=== PATIENT | female | born 1950 | race Caucasian/White ===

== ENCOUNTER 2018-03-08 15:00 | Inpatient (IN) | payer MEDICARE ==
[~2018-03-08] VITALS: Ht 160 cm; Wt 106.1 kg
[2018-03-08 15:13] VITALS: BP 150/77
[2018-03-08 15:29] LABS: APPEARANCE,URINE Cloudy (CLEAR); BILIRUBIN,URINE Negative (NEGATIVE); COLOR,URINE Yellow (YELLOW); GLUCOSE, URINE (UA) Negative (NEGATIVE); KETONES,URINE Negative (NEGATIVE); LEUKOCYTE ESTERASE ,URINE Large (NEGATIVE); NITRATE,URINE Negative (NEGATIVE); OCCULT BLOOD,URINE Small (NEGATIVE); PH,URINE 5.5 (5.0-8.0); PROTEIN,URINE Negative (NEGATIVE); UROBILINOGEN,URINE 0.2 mg/dL (0.2-1.0)
[2018-03-08 15:29] LABS: BASOPHILS % (AUTO) 1.4 % (0.0-5.0); EOSINOPHILS % (AUTO) 3.1 % (0.0-8.0); HEMATOCRIT 41.8 % (36-48); LYMPHOCYTES % (AUTO) 29.5 % (21.0-51.0); MEAN CORPUSCULAR HEMOGLOBIN 32.8 pg (27.0-33.0); MEAN CORPUSCULAR VOLUME 96.6 fL (79-99); MONOCYTES % (AUTO) 8.8 % (3.0-13.0); NEUTROPHILS % (AUTO) 57.2 % (40.0-77.0); PLATELET COUNT (AUTO) 166 K/uL (130-400); RED BLOOD CELL COUNT(AUTO) 4.32 MIL/uL (4.00-5.50); RED CELL DISTRIBUTION WIDTH 14.4 % (11.0-15.5); WHITE BLOOD COUNT (AUTO) 7.6 K/uL (4.8-10.8)
[2018-03-08 15:36] LABS: POTASSIUM 4.1 mmol/L (3.5-5.1)
[2018-03-08 15:43] LABS: INR 0.95 (0.85-1.15); PARTIAL THROMBOPLASTIN TIME 30.8 SEC (26.3-35.5)
[2018-03-08 15:47] LABS: BACTERIA,URINE Few /HPF (None Seen); SQUAMOUS EPITHELIAL CELL,UR Few /HPF (0-2)
[2018-03-08] MEDS ORDERED: LISI-613 PO (16:13)
[2018-03-08] MEDS ORDERED: GENTAMICIN 80 MG/NS 100 ML PB 100 ML IV SCH (17:15)
[2018-03-11] VITALS (21 sets, daily range): BP systolic 103–161; BP diastolic 55–84
[2018-03-11] MEDS ORDERED: CEFAZOLIN 3GM /D5W 100ML 100 ML IV SCH (06:00)
[2018-03-11] MEDS ORDERED: PHARMACY COMMUNICATION MISC SCH ×2 (06:00→18:00)
[2018-03-11] MEDS ORDERED: GENTAMICIN SULFATE 240 MG in SODIUM CHLORIDE 0.9% 100 ML IV SCH ×2 (06:00→19:00)
[2018-03-11] MEDS ORDERED: LACTATED RINGERS 1000ML 1,000 ML IV ONE (09:29)
[2018-03-11] MEDS: CEFAZOLIN SODIUM 1 GM VIAL ONE ×2 (09:41→13:16)
[2018-03-11] MEDS ORDERED: METOCLOPRAMIDE 10 MG/2 ML VIAL ONE (12:03)
[2018-03-11] MEDS ORDERED: OXYCODONE HCL 10 MG TAB.SR.12H PO ONE (12:04)
[2018-03-11] MEDS ORDERED: ACETAMINOPHEN EXTRA STRENGTH 500 MG TABLET ONE (12:04)
[2018-03-11] MEDS ORDERED: KETOROLAC TROMETHAMINE 15MG/ML ONE (12:04)
[2018-03-11] MEDS ORDERED: LIDOCAINE PF 2% 5ML ABBOJECT ONE (12:20)
[2018-03-11] MEDS ORDERED: ROPIVACAINE 0.5% 5MG/ML 30ML IJ ONE (12:21)
[2018-03-11] MEDS ORDERED: ONDANSETRON HCL 4 MG/2 ML VIAL ONE (12:21)
[2018-03-11] MEDS ORDERED: PROPOFOL 10 MG/ML 20ML VIAL IV ONE (12:21)
[2018-03-11] MEDS ORDERED: FAMOTIDINE/PF 20 MG/2 ML VIAL IV ONE (12:45)
[2018-03-11] MEDS ORDERED: TRANEXAMIC ACID 1000MG/10ML IV ONE (12:55)
[2018-03-11] MEDS ORDERED: BUPIVACAINE/EPI/PF 0.25% 30ML VIAL IJ ONE (12:55)
[2018-03-11] MEDS ORDERED: CEFAZOLIN SODIUM 1 GM VIAL ONE (12:55)
[2018-03-11] MEDS ORDERED: GLYCOPYRROLATE 1 MG/5 ML SYRINGE ONE (13:16)
[2018-03-11] MEDS ORDERED: FENTANYL CITRATE PF 50 MCG/1 ML 2ML VIAL ONE (13:27)
[2018-03-11] MEDS ORDERED: METOPROLOL TARTRATE 1 MG/ML 5ML VIAL IV ONE (13:33)
[2018-03-11] MEDS: SODIUM CHLORIDE 0.9% 1000ML 1,000 ML IV SCH ×2 (14:31→23:52)
[2018-03-11] MEDS ORDERED: POTASSIUM CHLORIDE 20MEQ/100ML 100 ML IV PRN (14:45)
[2018-03-11] MEDS ORDERED: POTASSIUM CHLORIDE 20 MEQ ERTAB PO PRN (14:45)
[2018-03-11] MEDS ORDERED: LIDOCAINE HCL-MPF 1% 2ML VIAL IVP PRN (14:45)
[2018-03-11] MEDS ORDERED: TEMAZEPAM 15 MG CAPSULE PO PRN (14:45)
[2018-03-11] MEDS ORDERED: CALCIUM CARBONATE 500 MG TABLET PO PRN (14:45)
[2018-03-11] MEDS ORDERED: FERROUS FUMARATE 324 MG TABLET PO PRN (14:45)
[2018-03-11] MEDS ORDERED: DiphenhydrAMINE HCL 50 MG/ML VIAL IVP PRN (14:45)
[2018-03-11] MEDS ORDERED: ONDANSETRON HCL 4 MG/2 ML VIAL IVP PRN (14:45)
[2018-03-11] MEDS ORDERED: POTASSIUM CHLORIDE 10% ELIXIR 20 MEQ/15 ML UDCUP PO PRN (14:45)
[2018-03-11] MEDS ORDERED: OXYCODONE HCL 5 MG TAB PO PRN (14:45)
[2018-03-11] MEDS ORDERED: TRAMADOL HCL 50 MG TABLET PO PRN (14:45)
[2018-03-11] MEDS ORDERED: KETOROLAC TROMETHAMINE 15MG/ML IV PRN (14:45)
[2018-03-11] MEDS: ACETAMINOPHEN EXTRA STRENGTH 500 MG TABLET PO SCH ×2 (14:45→20:27)
[2018-03-11] MEDS ORDERED: COMPOUND IV REFRIGERATED 1 EACH IVSOLN MISC PRN (18:30)
[2018-03-11] MEDS: PREGABALIN 25 MG CAP PO SCH (20:26)
[2018-03-11] MEDS: ASPIRIN 325 MG TABLET PO SCH (20:26)
[2018-03-11] MEDS: CEFAZOLIN SODIUM 1 GM VIAL IVP SCH (20:27)
[2018-03-12 01:55] LABS: CREATINE KINASE, TOTAL 115 U/L (21-232); MYOGLOBIN 83 ng/mL (10-92); TROPONIN I < 0.04 ng/mL (0.00-0.06)
[2018-03-12] MEDS: CEFAZOLIN SODIUM 1 GM VIAL IVP SCH (02:50)
[2018-03-12 05:01] VITALS: BP 136/58
[2018-03-12 05:20] LABS: HEMATOCRIT 37.2 % (36-48); MEAN CORPUSCULAR HEMOGLOBIN 32.7 pg (27.0-33.0); MEAN CORPUSCULAR HGB CONC 34.1 g/dL (32.0-36.0); MEAN CORPUSCULAR VOLUME 95.9 fL (79-99); PLATELET COUNT (AUTO) 156 K/uL (130-400); RED BLOOD CELL COUNT(AUTO) 3.88 MIL/uL (4.00-5.50); RED CELL DISTRIBUTION WIDTH 14.6 % (11.0-15.5); WHITE BLOOD COUNT (AUTO) 10.9 K/uL (4.8-10.8)
[2018-03-12 05:31] LABS: CREATININE 0.9 mg/dL (0.5-1.5); POTASSIUM 4.2 mmol/L (3.5-5.1)
[2018-03-12] MEDS: ACETAMINOPHEN EXTRA STRENGTH 500 MG TABLET PO SCH ×2 (05:35→14:57)
[2018-03-12 08:00] VITALS: BP 117/55
[2018-03-12] MEDS: ASPIRIN 325 MG TABLET PO SCH (08:32)
[2018-03-12] MEDS: PREGABALIN 25 MG CAP PO SCH (08:32)
[2018-03-12] MEDS: OXYCODONE HCL 5 MG TAB PO PRN ×2 (08:36→12:24)
[2018-03-12] MEDS ORDERED: LISINOPRIL 20 MG TABLET PO SCH (09:00)
[2018-03-12] MEDS ORDERED: POLYETHYLENE GLYCOL 3350 17 GM POWD.PACK PO SCH (09:00)
[2018-03-12 09:46] LABS: CREATINE KINASE, TOTAL 184 U/L (21-232); MYOGLOBIN 107 ng/mL (10-92); TROPONIN I < 0.04 ng/mL (0.00-0.06)
[2018-03-12 11:32] VITALS: BP 124/57
[2018-03-12] MEDS ORDERED: HYDR-309 PO (18:20)
[2018-03-12] MEDS ORDERED: ASPI-1012 PO (18:20)
[2018-03-14] MEDS ORDERED: BISACODYL 10 MG SUPP.RECT RC PRN (14:45)
== END 2018-03-12 20:25 | disposition home health service (06) | DRG 470 ==
LOC: EDSTATUS 15:00 → DAHIP 03-11 09:15 → 4AH 03-11 15:38
PROVIDERS: ADMIT Orthopaedic Surgery; ATTEND Orthopaedic Surgery
PROC: 0SRC0J9 Replacement of Right Knee Joint with Synthetic Substitute, Cemented, Open Approach (ICD-10-PCS; principal; 2018-03-11 13:28)
DX: M17.11 Unilateral primary osteoarthritis, right knee (principal); Z68.41 Body mass index [BMI] 40.0-44.9, adult; R00.1 Bradycardia, unspecified; I10 Essential (primary) hypertension; E66.9 Obesity, unspecified; Z88.0 Allergy status to penicillin; Z88.2 Allergy status to sulfonamides; Z88.8 Allergy status to other drugs, medicaments and biological substances; Z79.899 Other long term (current) drug therapy; Z83.3 Family history of diabetes mellitus; G89.29 Other chronic pain
CPT/HCPCS: 36415; 80048; 81001; 82550; 83874; 84443; 84484; 85025; 85027; 85610; 85730; 88305; 88311; 93005; 93306; A4218; J0690; J1580; J1885; J2001; J2405; J2704; J2765; J2795; J3010; J3490; J7120